=== PATIENT | male | born 1980 | race Hispanic/Latino ===

== ENCOUNTER 2020-01-23 18:57 | Inpatient (IN) | payer OTHER ==
[~2020-01-23] VITALS: Ht 167.6 cm; Wt 102.1 kg
[2020-01-23] MEDS ORDERED: ASPIRIN 325 MG TABLET ONE (19:15)
[2020-01-23] MEDS ORDERED: DiphenhydrAMINE HCL 50 MG/ML VIAL ONE (20:07)
[2020-01-23] MEDS ORDERED: ONDANSETRON HCL 4 MG/2 ML VIAL ONE (20:08)
[2020-01-23] MEDS ORDERED: FAMOTIDINE/PF 20 MG/2 ML VIAL IV ONE (20:08)
[2020-01-23] MEDS ORDERED: LABETALOL 20 MG/4 ML DISP.SYRIN IV ONE ×2 (21:35→22:48)
[2020-01-23] MEDS ORDERED: LIDOCAINE HCL 2% VISCOUS 15 ML UDCUP ONE (22:21)
[2020-01-23] MEDS ORDERED: MAG HYDROX/AL HYDROX/SIMETH ES 30 ML SUSP UDCUP ONE (22:21)
[2020-01-23] MEDS ORDERED: CLONIDINE HCL 0.1 MG TABLET ONE (23:35)
[2020-01-24] MEDS ORDERED: NITROGLYCERIN 1GM/1 INCH PACKET TD ONE ×4 (00:10→20:23)
[2020-01-24] MEDS ORDERED: ALPRAZOLAM 1 MG TAB ONE ×2 (01:39→20:22)
[2020-01-24] MEDS ORDERED: ALPRAZOLAM 0.5 MG TABLET PO PRN (01:45)
[2020-01-24] MEDS ORDERED: HYDRALAZINE HCL 20 MG/ML VIAL IV PRN (01:45)
[2020-01-24] MEDS ORDERED: ONDANSETRON HCL 4 MG/2 ML VIAL IV PRN (01:45)
[2020-01-24] MEDS ORDERED: ACETAMINOPHEN 325 MG TAB PO PRN ×2 (01:45)
[2020-01-24] MEDS ORDERED: ACETAMINOPHEN 325 MG TAB ONE ×4 (02:24→15:18)
[2020-01-24] MEDS ORDERED: POTASSIUM BICARB/CIT AC 25 MEQ TABLET.EFF ONE (05:49)
[2020-01-24] MEDS ORDERED: NITROGLYCERIN 1GM/1 INCH PACKET TD SCH (08:00)
[2020-01-24] MEDS ORDERED: FAMOTIDINE/PF 20 MG/2 ML VIAL IV ONE (08:55)
[2020-01-24] MEDS ORDERED: FAMOTIDINE/PF 20 MG/2 ML VIAL IV SCH (09:00)
[2020-01-24] MEDS ORDERED: ONDANSETRON HCL 4 MG/2 ML VIAL ONE (09:08)
[2020-01-24] MEDS ORDERED: POTASSIUM CHLORIDE 20 MEQ ERTAB PO SCH (09:15)
[2020-01-24] MEDS ORDERED: POTASSIUM CHLORIDE 20 MEQ ERTAB PO ONE (10:19)
[2020-01-24] MEDS ORDERED: ALPRAZOLAM 0.25 MG TABLET ONE (13:30)
[2020-01-24] MEDS ORDERED: ASPIRIN 81MG TAB.CHEW PO SCH (18:30)
--- NOTE | 2020-01-24 18:41 | NUR ---
cm note pt resides at home with family. independent with adls and ambulation. no dme. community resources discussed. dc plan back home at time of dc. Addendum: 01/24/20 at 1845 by WALTER BARON CM Amended: Links added.
[2020-01-24] MEDS ORDERED: NITROGLYCERIN 0.4 MG SL TAB SL ONE (18:49)
[2020-01-24] MEDS ORDERED: FAMOTIDINE 20MG TAB 20 MG TAB ONE (20:22)
[2020-01-24] MEDS ORDERED: AMLODIPINE BESYLATE 5 MG TAB ONE (20:24)
[2020-01-24] MEDS ORDERED: AMLODIPINE BESYLATE 5 MG TAB PO SCH (21:00)
[2020-01-25] MEDS ORDERED: ONDANSETRON HCL 4 MG/2 ML VIAL ONE ×2 (03:03→08:31)
[2020-01-25] MEDS ORDERED: ACETAMINOPHEN 325 MG TAB ONE (06:25)
[2020-01-25] MEDS ORDERED: AMLODIPINE BESYLATE 5 MG TAB ONE (08:01)
[2020-01-25] MEDS ORDERED: NITROGLYCERIN 1GM/1 INCH PACKET TD ONE (08:02)
[2020-01-25] MEDS ORDERED: FAMOTIDINE/PF 20 MG/2 ML VIAL IV ONE (08:02)
[2020-01-25] MEDS ORDERED: ALPRAZOLAM 0.25 MG TABLET ONE (08:32)
[2020-01-25] MEDS ORDERED: ASPIRIN 81MG TAB.CHEW ONE (08:51)
[2020-01-25] MEDS ORDERED: CLOPIDOGREL BISULFATE 75 MG TAB ONE (08:52)
[2020-01-25] MEDS ORDERED: LISINOPRIL 5 MG TABLET ONE (08:52)
[2020-01-25] MEDS ORDERED: METOPROLOL TARTRATE 25 MG TAB ONE (08:52)
[2020-01-25] MEDS ORDERED: ASPIRIN 81MG TAB.CHEW PO SCH (09:00)
[2020-01-25] MEDS ORDERED: CLOPIDOGREL BISULFATE 75 MG TAB PO SCH (09:31)
[2020-01-25] MEDS ORDERED: METOPROLOL TARTRATE 50 MG TAB PO SCH (09:31)
[2020-01-25] MEDS ORDERED: LISINOPRIL 10 MG TABLET PO SCH (09:31)
[2020-01-25] MEDS ORDERED: ATORVASTATIN CALCIUM 40 MG TABLET PO SCH (21:00)
[2020-01-26] MEDS ORDERED: ASPIRIN 81MG TAB.CHEW PO SCH (09:00)
== END 2020-01-25 12:28 | disposition home or self-care (01) | DRG 313 ==
LOC: EDH 18:57 → EDHIP 18:58
PROVIDERS: ADMIT Internal Medicine; ATTEND Internal Medicine
DX: R07.89 Other chest pain (principal); F41.9 Anxiety disorder, unspecified; I10 Essential (primary) hypertension; I16.0 Hypertensive urgency; Z88.5 Allergy status to narcotic agent